=== PATIENT | female | born 1990 | race Caucasian/White ===

== ENCOUNTER 2019-02-11 12:36 | Emergency (ER) | payer SELFPAY ==
[2019-02-11] MEDS: KETOROLAC 30 MG INJ IM (14:40)
== END 2019-02-11 16:20 | disposition home or self-care (01) ==
LOC: FTE 12:36
DX: S81.812A Laceration without foreign body, left lower leg, initial encounter (principal); V13.4XXA Pedal cycle driver injured in collision with car, pick-up truck or van in traffic accident, initial encounter
CPT/HCPCS: 73110; 73110-LT; 73590; 81025; 96372; 99284-25